=== PATIENT | male | born 1950 | race Two or more races ===

== ENCOUNTER 2022-08-06 09:39 | Emergency (ER) | payer MEDICARE, MEDICAID ==
[~2022-08-06] VITALS: Ht 170.2 cm; Wt 81.8 kg
[~2022-08-06 09:39] MED LIST: LISI10TA27 PO
[2022-08-06 10:11] LABS: BASOPHILS % (AUTO) 0.4 % (0-1); EOSINOPHILS # (AUTO) 0.2 X10'3 (0-0.9); EOSINOPHILS % (AUTO) 3.1 % (0-6); HEMATOCRIT 44.3 % (42.0-52.0); HEMOGLOBIN 15.2 g/dl (14.0-17.9); LYMPHOCYTES # (AUTO) 1.8 X10'3 (1.1-4.8); LYMPHOCYTES % (AUTO) 24.9 % (21-51); MEAN CORPUSCULAR HEMOGLOBIN 29.9 PG (27.0-31.0); MEAN CORPUSCULAR HGB CONC 34.3 g/dL (33.0-36.5); MEAN CORPUSCULAR VOLUME 87.2 FL (78-98); MEAN PLATELET VOLUME 7.7 FL (7.4-10.4); MONOCYTES # (AUTO) 0.7 X10'3 (0-0.9); MONOCYTES % (AUTO) 8.8 % (2-12); NEUTROPHILS # (AUTO) 4.6 X10'3 (1.8-7.7); NEUTROPHILS % (AUTO) 62.8 % (42-75); PLATELET COUNT 224 X10'3 (140-440); RED BLOOD COUNT 5.08 X10'6 (4.70-6.10); RED CELL DISTRIBUTION WIDTH 12.6 % (11.5-14.5); WHITE BLOOD COUNT 7.4 X10'3 (4.5-11.0)
[2022-08-06 10:16] LABS: CLARITY,URINE CLEAR (Clear); COLOR,URINE YELLOW (Yellow); GLUCOSE, URINE NEGATIVE (Neg); KETONES,URINE NEGATIVE (Neg); LEUKOCYTE ESTERASE ,URINE NEGATIVE (Neg); NITRITES, URINE NEGATIVE (Neg); OCCULT BLOOD,URINE NEGATIVE (Neg); PROTEIN,URINE NEGATIVE (Neg); UROBILINOGEN,URINE 0.2 E.U/dL (0.2-1.0)
[2022-08-06 10:20] LABS: UA COLLECTION TYPE CLN CATCH MIDSTREAM
[2022-08-06 10:31] LABS: ALANINE AMINOTRANSFERASE 24 U/L (12-78); ALBUMIN 3.8 G/DL (3.4-5.0); ALBUMIN/GLOBULIN RATIO 1.1 (1.1-1.5); ALKALINE PHOSPHATASE 73 IU/L (46-116); ANION GAP 4 (8-16); ASPARTATE AMINO TRANSFERASE 12 U/L (10-37); BILIRUBIN,TOTAL 0.5 MG/DL (0.1-1.0); BLOOD UREA NITROGEN 7 MG/DL (7-18); BUN/CREATININE RATIO 9.5 (10.0-20.0); CALCIUM 9.3 MG/DL (8.5-10.1); CHLORIDE 105 MMOL/L (99-107); CREATININE 0.74 MG/DL (0.60-1.10); GLUCOSE 148 MG/DL (70-104); LIPASE 1444 U/L (73-393); POTASSIUM 3.9 MMOL/L (3.5-5.1); SODIUM 137 MMOL/L (135-145); TOTAL CARBON DIOXIDE 28.5 MMOL/L (24-32); TOTAL PROTEIN 7.4 G/DL (6.4-8.2); eGFR > 90 ML/MIN
[2022-08-06] MEDS ORDERED: ondansetron 4mg rapidly disintigrating tab PO ONE (11:45)
[2022-08-06] MEDS ORDERED: ketorolac trometh inj. 60 MG/2 ML VIAL IM ONE (11:45)
[2022-08-06] MEDS ORDERED: HYDROcodone/acetaminophen 5mg/325mg tablet PO ONE (11:45)
[2022-08-06] MEDS ORDERED: HYDR-3965 PO (11:48)
[2022-08-06 12:07] VITALS: BP 149/84
== END 2022-08-06 12:15 | disposition home or self-care (01) ==
LOC: ER 09:39
DX: K85.90 Acute pancreatitis without necrosis or infection, unspecified (principal); E78.00 Pure hypercholesterolemia, unspecified
CPT/HCPCS: 36415; 80053; 81003; 83690; 85025; 96372; 99283; J1885

== ENCOUNTER 2022-09-06 19:33 | Inpatient (IN) | payer MEDICARE, MEDICAID ==
[~2022-09-06] VITALS: Ht 170.2 cm; Wt 80.0 kg
[~2022-09-06 19:33] MED LIST changes: +HYDR-3965 PO
[2022-09-06 20:01] LABS: BASOPHILS % (AUTO) 0.5 % (0-1); EOSINOPHILS # (AUTO) 0.4 X10'3 (0-0.9); EOSINOPHILS % (AUTO) 5.4 % (0-6); HEMATOCRIT 38.8 % (42.0-52.0); HEMOGLOBIN 13.1 g/dl (14.0-17.9); LYMPHOCYTES # (AUTO) 1.9 X10'3 (1.1-4.8); LYMPHOCYTES % (AUTO) 24.3 % (21-51); MEAN CORPUSCULAR HEMOGLOBIN 29.3 PG (27.0-31.0); MEAN CORPUSCULAR HGB CONC 33.8 g/dL (33.0-36.5); MEAN CORPUSCULAR VOLUME 86.6 FL (78-98); MEAN PLATELET VOLUME 9.2 FL (7.4-10.4); MONOCYTES # (AUTO) 0.4 X10'3 (0-0.9); MONOCYTES % (AUTO) 5.1 % (2-12); NEUTROPHILS # (AUTO) 5.2 X10'3 (1.8-7.7); NEUTROPHILS % (AUTO) 64.7 % (42-75); PLATELET COUNT 264 X10'3 (140-440); RED BLOOD COUNT 4.48 X10'6 (4.70-6.10); RED CELL DISTRIBUTION WIDTH 14.8 % (11.5-14.5)
[2022-09-06 20:17] LABS: ALANINE AMINOTRANSFERASE 310 U/L (12-78); ALBUMIN 3.3 G/DL (3.4-5.0); ALKALINE PHOSPHATASE 727 IU/L (46-116); ANION GAP 12 (8-16); ASPARTATE AMINO TRANSFERASE 176 U/L (10-37); BILIRUBIN,TOTAL 5.6 MG/DL (0.1-1.0); BLOOD UREA NITROGEN 9 MG/DL (7-18); BUN/CREATININE RATIO 11.8 (10.0-20.0); CALCIUM 9.2 MG/DL (8.5-10.1); CHLORIDE 103 MMOL/L (99-107); CREATININE 0.76 MG/DL (0.60-1.10); GLUCOSE 184 MG/DL (70-104); POTASSIUM 3.4 MMOL/L (3.5-5.1); SODIUM 140 MMOL/L (135-145); TOTAL CARBON DIOXIDE 25.4 MMOL/L (24-32); eGFR > 90 ML/MIN
[2022-09-06 20:21] LABS: ALBUMIN/GLOBULIN RATIO 0.8 (1.1-1.5); TOTAL PROTEIN 7.2 G/DL (6.4-8.2)
[2022-09-06 20:23] LABS: LIPASE 294 U/L (73-393)
[2022-09-06 23:02] LABS: MAGNESIUM 1.8 MG/DL (1.5-2.4)
[2022-09-06 23:50] LABS: APTT 29 SECONDS (22-32)
[2022-09-07 00:46] LABS: CLARITY,URINE CLEAR (Clear); COLOR,URINE AMBER (Yellow); GLUCOSE, URINE NEGATIVE (Neg); KETONES,URINE TRACE mg/dl (Neg); LEUKOCYTE ESTERASE ,URINE NEGATIVE (Neg); NITRITES, URINE NEGATIVE (Neg); OCCULT BLOOD,URINE NEGATIVE (Neg); PH,URINE 5.5 (4.8-8.0); PROTEIN,URINE TRACE mg/dl (Neg)
[2022-09-07 00:47] LABS: UA COLLECTION TYPE CLN CATCH MIDSTREAM
[2022-09-07 00:52] LABS: MUCUS STRANDS MANY /LPF (Neg); WBC,URINE 0-4 /HPF (0-4)
[2022-09-07 00:53] LABS: HYALINE CASTS 0-3 /LPF (NEGATIVE); RBC,URINE 0-2 /HPF (0-2)
[2022-09-07 00:54] LABS: BACTERIA,URINE FEW /HPF (Neg); SQUAMOUS EPITHELIAL CELL,UR FEW /LPF (FEW)
[2022-09-07] MEDS ORDERED: piperacillin/tazo 3.375gm/50ml 50 ML IV ONE (01:05)
[2022-09-07 01:13] LABS: URINE AMPHETAMINE SCREEN NEGATIVE (Neg); URINE BARBITUATE SCREEN NEGATIVE (Neg); URINE BENZODIAZEPINES SCREEN NEGATIVE (Neg); URINE CANNABINOID SCREEN NEGATIVE (Neg); URINE COCAINE SCREEN NEGATIVE (Neg); URINE METHADONE SCREEN NEGATIVE (Neg); URINE OPIATE SCREEN NEGATIVE (Neg); URINE PHENCYCLIDINE SCREEN NEGATIVE (Neg)
[2022-09-07] MEDS ORDERED: magnesium Cl slow-release 64mg tablet PO PRN (01:25)
[2022-09-07] MEDS ORDERED: magnesium 4gm in 100ml NS 100 ML IV PRN (01:25)
[2022-09-07] MEDS ORDERED: magnesium hydroxide 30ml (MOM) UD suspension PO PRN (01:25)
[2022-09-07] MEDS ORDERED: potassium Cl 40MEQ/1/2NS 520ml 520 ML IV PRN (01:25)
[2022-09-07] MEDS ORDERED: mag hydrox/Alum hydrox/simeth 30ml oral suspension PO PRN (01:25)
[2022-09-07] MEDS ORDERED: acetaminophen 325mg tablet PO PRN (01:25)
[2022-09-07] MEDS ORDERED: magnesium 2GM in 50ml NS 50 ML IV PRN (01:25)
[2022-09-07] MEDS ORDERED: ondansetron/PF 4mg/2ml inj IV PRN (01:25)
[2022-09-07] MEDS ORDERED: potassium Cl 20 mEq SR tablet PO PRN (01:25)
[2022-09-07] MEDS: normal saline 1000ml 1,000 ML IV SCH ×3 (02:02→21:25)
[2022-09-07 02:13] LABS: MAGNESIUM 1.9 MG/DL (1.5-2.4)
[2022-09-07 02:22] LABS: POTASSIUM 3.3 MMOL/L (3.5-5.1)
[2022-09-07 03:49] VITALS: BP 142/76
[2022-09-07] MEDS: potassium Cl 20 mEq SR tablet PO PRN (05:38)
--- NOTE | 2022-09-07 05:40 | NUR ---
PT NPO FOR ERCP; RESTING COMFORTABLY IN BED; REPLACED POTASSIUM ORALLY WITH ENOUGH WATER TO SWALLOW THE PILL
[2022-09-07 06:00] VITALS: BP 141/63
--- NOTE | 2022-09-07 06:36 | NUR ---
Problems reprioritized. Patient report given, questions answered & plan of care reviewed with MARILYN KUMAR.
--- NOTE | 2022-09-07 06:47 | NUR ---
Patient in room [facility]TH[facility] 4014. I have received report from PAT Herrera and had the opportunity to ask questions and assume patient care.
[2022-09-07] MEDS: piperacillin/tazo 3.375gm/50ml 50 ML IV SCH ×2 (07:00→19:42)
[2022-09-07] MEDS: K and/or MAG REPLACEMENT MC SCH ×2 (08:00→19:39)
[2022-09-07] MEDS: docusate sod 100mg capsule PO SCH ×2 (08:16→19:38)
[2022-09-07] MEDS: lisinopril 10 MG tablet PO SCH (08:16)
[2022-09-07 10:00] VITALS: BP 158/74
--- NOTE | 2022-09-07 13:29 | NUR ---
Malnutrition consult: Pt seen at bedside agreeable to interview in preferred [place] language but frequent bouts of interruptions due to spitting up. Pt reports UBW of 176 pounds for many years but new higher weight of 190 pounds this year. Pt reports possibly losing 25-30 pounds since last hospital admit, noted reported discrepancy per malnutrition nursing screen reports of 14-23 pounds weight loss and triage reported wt of 80kg (176 pounds). Noted triage weight is reported UBW of 176 pounds. Currently no scaled weight this admit; notified of scaled wt request. Documented prior admit bedscaled wt on 07/09/22 of 83.8kg (184 pounds) per EMR. Pt reports loss of taste for the last two weeks, nausea, stomach discomfort after eating, and spitting up constantly have affected his appetite but unclear of overall decreased intake. Pt reports no chewing/swallowing difficulties nor food allergies and does not have edema. Pt does not a meet a minimum of two malnutrition criteria at this time. Will continue to monitor for malnutrition criteria. Addendum: 09/07/22 at [address] Amended: Links added. Addendum: 09/07/22 at [address] BENI has reviewed and approves of above note.
[2022-09-07 18:00] VITALS: BP 159/67
--- NOTE | 2022-09-07 18:28 | NUR ---
Patient in room [facility]TH[facility] 4014. I have received report from Daniele SADNERS and had the opportunity to ask questions and assume patient care.
[2022-09-07 22:00] VITALS: BP 149/71
--- NOTE | 2022-09-08 01:27 | NUR ---
Agree with physical assessment completed by Fifi Brian except what I charted.
[2022-09-08] MEDS: piperacillin/tazo 3.375gm/50ml 50 ML IV SCH ×3 (01:54→15:35)
[2022-09-08] MEDS: normal saline 1000ml 1,000 ML IV SCH ×2 (02:01→13:49)
[2022-09-08 06:00] VITALS: BP 121/54
--- NOTE | 2022-09-08 06:00 | NUR ---
Patient in room [facility]TH[facility] 4014. I have received report from Moo SANDERS and had the opportunity to ask questions and assume patient care.
--- NOTE | 2022-09-08 06:03 | NUR ---
Problems reprioritized. Patient report given, questions answered & plan of care reviewed with sukhdev SANDERS.
[2022-09-08 06:13] LABS: BASOPHILS % (AUTO) 0.6 % (0-1); EOSINOPHILS # (AUTO) 0.6 X10'3 (0-0.9); EOSINOPHILS % (AUTO) 7.3 % (0-6); HEMATOCRIT 36.1 % (42.0-52.0); HEMOGLOBIN 12.2 g/dl (14.0-17.9); LYMPHOCYTES # (AUTO) 2.1 X10'3 (1.1-4.8); LYMPHOCYTES % (AUTO) 27.2 % (21-51); MEAN CORPUSCULAR HEMOGLOBIN 29.5 PG (27.0-31.0); MEAN CORPUSCULAR HGB CONC 33.8 g/dL (33.0-36.5); MEAN CORPUSCULAR VOLUME 87.3 FL (78-98); MEAN PLATELET VOLUME 9.5 FL (7.4-10.4); MONOCYTES # (AUTO) 0.7 X10'3 (0-0.9); MONOCYTES % (AUTO) 9.3 % (2-12); NEUTROPHILS # (AUTO) 4.3 X10'3 (1.8-7.7); NEUTROPHILS % (AUTO) 55.6 % (42-75); PLATELET COUNT 238 X10'3 (140-440); RED BLOOD COUNT 4.14 X10'6 (4.70-6.10); RED CELL DISTRIBUTION WIDTH 15.1 % (11.5-14.5); WHITE BLOOD COUNT 7.7 X10'3 (4.5-11.0)
[2022-09-08 06:26] LABS: ALANINE AMINOTRANSFERASE 249 U/L (12-78); ALBUMIN 2.7 G/DL (3.4-5.0); ALKALINE PHOSPHATASE 602 IU/L (46-116); ANION GAP 8 (8-16); ASPARTATE AMINO TRANSFERASE 134 U/L (10-37); BILIRUBIN,TOTAL 6.2 MG/DL (0.1-1.0); BLOOD UREA NITROGEN 8 MG/DL (7-18); CALCIUM 8.9 MG/DL (8.5-10.1); CHLORIDE 107 MMOL/L (99-107); CREATININE 0.73 MG/DL (0.60-1.10); GLUCOSE 90 MG/DL (70-104); MAGNESIUM 1.9 MG/DL (1.5-2.4); POTASSIUM 3.6 MMOL/L (3.5-5.1); SODIUM 143 MMOL/L (135-145); TOTAL CARBON DIOXIDE 27.9 MMOL/L (24-32); eGFR > 90 ML/MIN
[2022-09-08 06:28] LABS: ALBUMIN/GLOBULIN RATIO 0.8 (1.1-1.5); TOTAL PROTEIN 6.1 G/DL (6.4-8.2)
[2022-09-08] MEDS: docusate sod 100mg capsule PO SCH ×2 (07:57→20:26)
[2022-09-08] MEDS: lisinopril 10 MG tablet PO SCH (07:58)
[2022-09-08] MEDS: K and/or MAG REPLACEMENT MC SCH ×2 (08:00→20:00)
[2022-09-08] MEDS: heparin, porcine 5000 units/ml vial SQ SCH ×2 (08:00→20:26)
[2022-09-08 10:00] VITALS: BP 142/68
[2022-09-08 12:06] LABS: CARCINOEMBRYONIC ANTIGEN 0.7 ng/mL (0.0-4.7)
--- NOTE | 2022-09-08 13:49 | NUR ---
NS 1L bag would not scan w/ scanner on [employer]. Entered administration in [employer].
--- NOTE | 2022-09-08 15:34 | NUR ---
PAGER ID: [phone] MESSAGE: [id number]- Mikel Damico- Patient tolerated the clear liquids well. What is the plan for this patient? Pls advise? Sukhwinder Paredes [phone]
--- NOTE | 2022-09-08 16:42 | NUR ---
PAGER ID: [phone] MESSAGE: [id number], E- 2nd page: what is the plan for patient? He is tolerating Clear liquids well. Patient would like to know the MRCP results. Pls advise? Sukhwinder Paredes [phone]
--- NOTE | 2022-09-08 17:30 | NUR ---
Spoke with Dr. Emerson and she spoke with GI and patient is having a ERCP tomorrow. Okay to stay on clear liquids and then NPO after midnight tonight. I spoke with patient and son about plan. Also, Dr. Emerson set up a family meeting tomorrow at 11:00 with dinkey operator slate.
--- NOTE | 2022-09-08 17:30 | NUR ---
I have reviewed and agree with interventions, assessments, and documentation by Lena Munroe LVN.
[2022-09-08 18:00] VITALS: BP 155/67
--- NOTE | 2022-09-08 18:00 | NUR ---
Patient in room [facility]TH[facility] 4014. I have received report from MARILYN VO and had the opportunity to ask questions and assume patient care.
[2022-09-08 18:53] LABS: HBSAG SCREEN Negative (Negative); HEP B CORE AB, TOT Negative (Negative)
--- NOTE | 2022-09-08 19:14 | NUR ---
Problems reprioritized. Patient report given, questions answered & plan of care reviewed with Melody STEWART.
--- NOTE | 2022-09-08 20:25 | NUR ---
PTS URINE TEA COLORED. ENCOURAGED PO FLUIDS Addendum: 09/08/22 at 2024 by Princess Rivera RN Amended: Links added.
[2022-09-09] MEDS: piperacillin/tazo 3.375gm/50ml 50 ML IV SCH ×2 (00:06→08:10)
[2022-09-09] MEDS: normal saline 1000ml 1,000 ML IV SCH (03:25)
[2022-09-09 06:20] LABS: BASOPHILS % (AUTO) 0.6 % (0-1); EOSINOPHILS # (AUTO) 0.5 X10'3 (0-0.9); EOSINOPHILS % (AUTO) 7.6 % (0-6); HEMATOCRIT 34.5 % (42.0-52.0); HEMOGLOBIN 11.6 g/dl (14.0-17.9); LYMPHOCYTES # (AUTO) 1.9 X10'3 (1.1-4.8); LYMPHOCYTES % (AUTO) 27.2 % (21-51); MEAN CORPUSCULAR HEMOGLOBIN 29.4 PG (27.0-31.0); MEAN CORPUSCULAR HGB CONC 33.7 g/dL (33.0-36.5); MEAN CORPUSCULAR VOLUME 87.3 FL (78-98); MEAN PLATELET VOLUME 9.2 FL (7.4-10.4); MONOCYTES # (AUTO) 0.6 X10'3 (0-0.9); MONOCYTES % (AUTO) 8.7 % (2-12); NEUTROPHILS # (AUTO) 3.8 X10'3 (1.8-7.7); NEUTROPHILS % (AUTO) 55.9 % (42-75); PLATELET COUNT 235 X10'3 (140-440); RED BLOOD COUNT 3.95 X10'6 (4.70-6.10); RED CELL DISTRIBUTION WIDTH 15.4 % (11.5-14.5); WHITE BLOOD COUNT 6.9 X10'3 (4.5-11.0)
[2022-09-09 06:28] LABS: ALANINE AMINOTRANSFERASE 219 U/L (12-78); ALBUMIN 2.5 G/DL (3.4-5.0); ALKALINE PHOSPHATASE 531 IU/L (46-116); ANION GAP 7 (8-16); ASPARTATE AMINO TRANSFERASE 119 U/L (10-37); BILIRUBIN,TOTAL 5.3 MG/DL (0.1-1.0); BLOOD UREA NITROGEN 3 MG/DL (7-18); BUN/CREATININE RATIO 3.9 (10.0-20.0); CALCIUM 8.8 MG/DL (8.5-10.1); CHLORIDE 108 MMOL/L (99-107); CREATININE 0.76 MG/DL (0.60-1.10); GLUCOSE 94 MG/DL (70-104); MAGNESIUM 1.8 MG/DL (1.5-2.4); POTASSIUM 3.3 MMOL/L (3.5-5.1); SODIUM 144 MMOL/L (135-145); TOTAL CARBON DIOXIDE 28.6 MMOL/L (24-32); eGFR > 90 ML/MIN
[2022-09-09 06:29] LABS: ALBUMIN/GLOBULIN RATIO 0.8 (1.1-1.5); TOTAL PROTEIN 5.7 G/DL (6.4-8.2)
--- NOTE | 2022-09-09 06:30 | NUR ---
Patient in room [facility]TH[facility] 4014. I have received report from Melody STEWART and had the opportunity to ask questions and assume patient care.
--- NOTE | 2022-09-09 06:41 | NUR ---
Problems reprioritized. Patient report given, questions answered & plan of care reviewed with MARILYN JOHNSON .
[2022-09-09 06:51] VITALS: BP 149/65
[2022-09-09] MEDS: K and/or MAG REPLACEMENT MC SCH (07:50)
[2022-09-09] MEDS: potassium Cl 20 mEq SR tablet PO PRN (07:59)
[2022-09-09 08:00] VITALS: BP_SYST 149
[2022-09-09] MEDS: lisinopril 10 MG tablet PO SCH (08:00)
[2022-09-09] MEDS: docusate sod 100mg capsule PO SCH (08:00)
[2022-09-09] MEDS: heparin, porcine 5000 units/ml vial SQ SCH (08:00)
--- NOTE | 2022-09-09 12:00 | NUR ---
patient saw MD and son as at bedside.Dr. Emerson gave patient prognosis and information about suspected diagnosis of Pancreatic cancer and upcoming procedure. Patient decided to leave AMA to go to [facility] to get quicker and more advanced treatment as they just lost a brother to lung cancer. Patient walked out with son all belongings left with patient and pt signed AMA form.
--- NOTE | 2022-09-09 12:19 | NUR ---
I have reviewed and agree with interventions, assessments, and documentation by Cleopatra Maldonado LVN .
== END 2022-09-09 12:05 | disposition left against medical advice (07) | DRG 435 ==
LOC: ER 19:34 → ED HOLD 09-07 01:27 → ORTHO 4S 09-07 03:10
PROVIDERS: ADMIT Internal Medicine; ATTEND Internal Medicine
DX: C25.0 Malignant neoplasm of head of pancreas (principal); K83.1 Obstruction of bile duct; E78.00 Pure hypercholesterolemia, unspecified; I10 Essential (primary) hypertension; K82.8 Other specified diseases of gallbladder; N40.0 Benign prostatic hyperplasia without lower urinary tract symptoms; E87.6 Hypokalemia; Z53.29 Procedure and treatment not carried out because of patient's decision for other reasons; K83.8 Other specified diseases of biliary tract; R63.0 Anorexia; Z68.27 Body mass index [BMI] 27.0-27.9, adult; Z79.899 Other long term (current) drug therapy
CPT/HCPCS: 36415; 71045; 74176; 74181; 76700; 80053; 80305; 81001; 82378; 83605; 83690; 83735; 83880; 84132; 84145; 84484; 85025; 85610; 85730; 86301; 86704; 86705; 86706; 87040; 87081; 87340; 93005; 99285; G0378; J1644; J2543; J7030